=== PATIENT | female | born 1940 | race Caucasian/White ===

== ENCOUNTER 2020-11-01 06:10 | Emergency (ER) | payer MEDICARE, BC ==
--- NOTE | 2020-11-01 06:39 | EDM.PDOC ---
ED HPI GENERAL MEDICAL PROBLEM - General Chief Complaint: General Stated Complaint: R great toe pain Time Seen by Provider: 11/01/20 06:39 Source of Information: Reports: Patient - History of Present Illness INITIAL COMMENTS - FREE TEXT/NARRATIVE: Albertina, 80-year-old female, presents with inflammation and drainage from her right great toe. 10 days ago she had a toenail removal after being treated with cephalexin as it was significantly infected. Infection all cleared nicely and was deemed infection free at the time the nail was removed on the . The past 2 days she is noted mild inflammation redness with drainage obtained yesterday after she had soaked it. Pressure and redness has continued and she presents to us for evaluation and antibiotic treatment. She has no other complaints Onset: Gradual Duration: Day(s): Location: Reports: Lower Extremity, Right Quality: Reports: Pressure, Throbbing Severity: Moderate Improves with: Reports: None Worsens with: Reports: Movement Associated Symptoms: Reports: No Other Symptoms Right Toe-Hailux Pain Score (Numeric/FACES): 7 - Related Data Allergies Allergy/AdvReac Type Severity Reaction Status Date / Time clarithromycin [From Biaxin] Allergy Cannot Verified 11/01/20 06:54 Remember Sulfa (Sulfonamide Allergy Cannot Verified 11/01/20 06:54 Antibiotics) Remember Home Meds: Home Meds Arformoterol [Brovana] 15 mcg INH Q12HR 11/01/20 [History] Aspirin [Aspirin EC] 81 mg PO DAILY 11/01/20 [History] Betamethasone Dipropionate [Diprolene 0.05% Lotion] 30 ml TP BID 11/01/20 [History] Budesonide [Pulmicort] 0.5 mg IH BID 11/01/20 [History] Bumetanide 0.5 mg PO DAILY 11/01/20 [History] Calcium Carbonate 500 mg PO DAILY 11/01/20 [History] Levothyroxine [Synthroid] 100 mcg PO ACBREAKFAST 11/01/20 [History] Metoprolol Tartrate 25 mg PO BID 11/01/20 [History] Multivitamin 1 tab PO DAILY 11/01/20 [History] Simvastatin [Zocor] 40 mg PO DAILY 11/01/20 [History] cephALEXin [Cephalexin] 500 mg PO TID 7 Days #21 tablet 11/01/20 [Rx] Past Medical History HEENT History: Reports: Cataract, Impaired Vision, Retinal Detachment, Other (See Below) (hypertropia and myopia) Cardiovascular History: Reports: High Cholesterol, Hypertension, Other (See Below) (ASCD tricuspid insufficiency) Respiratory History: Reports: Asthma, Sleep Apnea, Other (See Below) (pulmonary nodules) Gastrointestinal History: Reports: None Genitourinary History: Reports: Other (See Below) (overactive bladder Nocturia) 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: Musculoskeletal History: Reports: None Neurological History: Reports: None Psychiatric History: Reports: None Endocrine/Metabolic History: Reports: Hypothyroidism Hematologic History: Reports: None Dermatologic History: Reports: Angiodema, Cellulitis, Eczema, Other (See Below) - Past Surgical History HEENT Surgical History: Reports: Cataract Surgery, Detached Retina, Visual (vitrectomy and YAG) Respiratory Surgical History: Reports: Lung Biopsies, Lung Resection GI Surgical History: Reports: None Oncologic Surgical History: Reports: Biopsy of Breast, Mastectomy Other Surgical History Comment: toe nail removal 10 days ago 23 October 2020 - Past Imaging History Past Imaging History: Reports: Bone Scan, CAT Scan, Mammogram, Ultrasound, Xray Social & Family History - Family History Family Medical History: No Pertinent Family History ED ROS GENERAL - Review of Systems Review Of Systems: Comprehensive ROS is negative, except as noted in HPI. ED EXAM, GENERAL - Physical Exam Exam: See Below Free Text/Narrative:: Alert, oriented in no acute distress. No respiratory distress is noted with no audible wheezes nor distress. Regular heart rate with radial pulse present. Focused examination to the right great toe showing exudate blood-tinged to the base of where the nailbed had been after nail removal. There is mild erythema over the dorsum of the toe. Tenderness to touch. There is no tenderness on the plantar aspect no redness no crepitus noted during flexion extension of the digit. Course - Vital Signs Last Recorded V/S: Last Vital Signs Temp 97.0 F 11/01/20 06:23 Pulse 57 L 11/01/20 06:23 Resp 20 11/01/20 06:23 BP 141/63 H 11/01/20 06:23 Pulse Ox 96 11/01/20 06:23 - Orders/Labs/Meds Meds: Medications Discontinued Medications Generic Name Dose Route Start Last Admin Trade Name Freq PRN Reason Stop Dose Admin Cephalexin 500 mg 11/01/20 06:57 11/01/20 07:01 Cephalexin 250 Mg Cap PO 11/01/20 06:58 500 mg ONETIME ONE Administration Departure - Departure Time of Disposition: 07:02 Disposition: Home, Self-Care 01 Condition: Good Clinical Impression: Infected abrasion of great toe of right foot - Discharge Information *PRESCRIPTION DRUG MONITORING PROGRAM REVIEWED*: Not Applicable *COPY OF PRESCRIPTION DRUG MONITORING REPORT IN PATIENT MICA: Not Applicable Prescriptions: cephALEXin [Cephalexin] 500 mg PO TID 7 Days #21 tablet Referrals: Katelin Stubbs MD [Primary Care Provider] - Forms: ED Department Discharge Additional Instructions: We have obtained a culture from the nailbed which will take 3 to 5 days to result. You will take cephalexin 500 mg 3 times a day for the next 7 days. Continue all your other medications as directed. You can maintain any activity that is comfortable, but if swelling or drainage becomes worse consider elevating and reducing your activity. Keep this clean and dry as possible. Follow-up with your clinic next week if not showing improvement by Tuesday which would be 48 hours of antibiotic. Sepsis Event Note (ED) - Focused Exam Vital Signs: Vital Signs Temp Pulse Resp BP Pulse Ox 11/01/20 06:23 97.0 F 57 L 20 141/63 H 96 - Problem List & Annotations (1) Infected abrasion of great toe of right foot SNOMED Code(s): 37768279726565602 Code(s): S90.411A - ABRASION, RIGHT GREAT TOE, INITIAL ENCOUNTER; L08.9 - LOCAL INFECTION OF THE SKIN AND SUBCUTANEOUS TISSUE, UNSP Status: Acute Qualifiers: Encounter type: initial encounter Qualified Code(s): S90.411A - Abrasion, right great toe, initial encounter; L08.9 - Local infection of the skin and subcutaneous tissue, unspecified - Problem List Review Problem List Initiated/Reviewed/Updated: Yes - Assessment/Plan Plan: We have obtained a culture from the nailbed which will take 3 to 5 days to result. You will take cephalexin 500 mg 3 times a day for the next 7 days. Continue all your other medications as directed. You can maintain any activity that is comfortable, but if swelling or drainage becomes worse consider elevating and reducing your activity. Keep this clean and dry as possible. Follow-up with your clinic next week if not showing improvement by Tuesday which would be 48 hours of antibiotic.
[2020-11-01] MEDS ORDERED: Cephalexin 250 MG Cap PO ONE (06:57)
== END 2020-11-01 07:15 | disposition home or self-care (01) ==
LOC: KA.ED 06:10
DX: S90.411A Abrasion, right great toe, initial encounter (principal); L08.9 Local infection of the skin and subcutaneous tissue, unspecified; E78.00 Pure hypercholesterolemia, unspecified; I10 Essential (primary) hypertension; E03.9 Hypothyroidism, unspecified; Z79.899 Other long term (current) drug therapy; Z79.82 Long term (current) use of aspirin; Z88.1 Allergy status to other antibiotic agents; Z88.2 Allergy status to sulfonamides; X58.XXXA Exposure to other specified factors, initial encounter; Y92.009 Unspecified place in unspecified non-institutional (private) residence as the place of occurrence of the external cause
CPT/HCPCS: 87070; 87186; 87205; 99283; A9270-GY

== ENCOUNTER 2021-10-17 10:50 | Emergency (ER) | payer MEDICARE, BC ==
[2021-10-17 11:57] LABS: ANION GAP 12.3 mmol/L (5-15)
[2021-10-17] MEDS: Acetaminophen 500 MG Tab PO ONE (12:11)
[2021-10-17] MEDS: Benzonatate 100 MG Cap PO ONE ×2 (12:16→13:40)
[2021-10-17] MEDS: Ondansetron 4 MG Tab.DIS PO ONE (12:29)
[2021-10-17] MEDS ORDERED: diphenhydrAMINE 50 MG/ML SDV IVPUSH PRN (12:46)
[2021-10-17] MEDS ORDERED: methylPREDNISolone Sodium Succinate 125 MG/2 ML SDV IVPUSH PRN (12:46)
[2021-10-17] MEDS ORDERED: EPINEPHrine 1:10,000 1 MG/10 ML Syringe IM PRN (12:46)
[2021-10-17] MEDS ORDERED: Famotidine 20 MG/2 ML SDV IVPUSH PRN (12:46)
[2021-10-17] MEDS ORDERED: Sodium Chloride 0.9% 10 ML Syringe FLUSH SCH (13:00)
== END 2021-10-17 14:25 | disposition home or self-care (01) ==
LOC: KA.ED 10:50
DX: U07.1 COVID-19 (principal); E78.00 Pure hypercholesterolemia, unspecified; E03.9 Hypothyroidism, unspecified; I10 Essential (primary) hypertension; Z88.1 Allergy status to other antibiotic agents; Z88.2 Allergy status to sulfonamides; Z79.899 Other long term (current) drug therapy; Z79.82 Long term (current) use of aspirin
CPT/HCPCS: 36415; 71045; 80053; 85025; 99284; A9270; M0222; Q0222; U0002

== ENCOUNTER 2022-02-27 07:00 | Emergency (ER) | payer MEDICARE, BC ==
[2022-02-27] MEDS ORDERED: Sodium Chloride 0.9% 10 ML Syringe FLUSH PRN (07:08)
[2022-02-27 08:19] LABS: RESPIRATORY SYNCYTIAL VIR NAA NEGATIVE (NEGATIVE)
[2022-02-27 08:27] LABS: CORONAVIRUS COVID-19 NAA NEGATIVE (NEGATIVE)
== END 2022-02-27 09:00 | disposition home or self-care (01) ==
LOC: KA.ED 07:00
DX: J10.1 Influenza due to other identified influenza virus with other respiratory manifestations (principal); J44.9 Chronic obstructive pulmonary disease, unspecified; E78.00 Pure hypercholesterolemia, unspecified; I10 Essential (primary) hypertension; J45.909 Unspecified asthma, uncomplicated; E03.9 Hypothyroidism, unspecified; Z88.1 Allergy status to other antibiotic agents; Z88.2 Allergy status to sulfonamides; Z79.82 Long term (current) use of aspirin; Z79.899 Other long term (current) drug therapy; Z20.822 Contact with and (suspected) exposure to COVID-19
CPT/HCPCS: 0241U; 71046; 80053; 83605; 85025; 86140; 87040; 99284; J3490

== ENCOUNTER 2022-12-20 11:59 | Emergency (ER) | payer MEDICARE, BC ==
[2022-12-20 12:26] LABS: BASOPHILS ABSOLUTE AUTO 0.05 10^3/uL (0.00-0.10); BASOPHILS PERCENT AUTO 0.6 % (0.0-1.0); EOSINOPHILS ABSOLUTE AUTO 0.23 10^3/uL (0.10-0.30); EOSINOPHILS PERCENT AUTO 2.8 % (1.0-3.0); HEMATOCRIT 38.9 % (37.0-47.0); HEMOGLOBIN 12.7 g/dL (12.0-16.0); IMMATURE GRAN ABSOLUTE AUTO 0.02 10^3/uL (0.00-0.50); IMMATURE GRAN PERCENT AUTO 0.2 % (0.0-5.0); LYMPHOCYTES ABSOLUTE AUTO 1.84 10^3/uL (1.00-4.00); LYMPHOCYTES PERCENT AUTO 22.6 % (20.0-40.0); MEAN CORPUSCULAR HEMOGLOBIN 29.7 pg (27.0-31.0); MEAN CORPUSCULAR HGB CONC 32.6 g/dL (32.0-36.0); MEAN CORPUSCULAR VOLUME 90.9 fL (82.0-92.0); MEAN PLATELET VOLUME 9.5 fL (7.4-10.4); MONOCYTES ABSOLUTE AUTO 0.92 10^3/uL (0.10-0.80); MONOCYTES PERCENT AUTO 11.3 % (2.0-8.0); NEUTROPHILS ABSOLUTE AUTO 5.07 10^3/uL (2.50-7.00); NEUTROPHILS PERCENT AUTO 62.5 % (50.0-70.0); PLATELET COUNT,PLT 317 10^3/uL (150-400); RED BLOOD CELL COUNT 4.28 10^6/uL (3.80-5.50); WHITE BLOOD CELL COUNT,WBC 8.13 10^3/uL (5.00-10.00)
[2022-12-20 12:41] LABS: ALBUMIN 3.05 g/dL (3.40-5.00); ANION GAP 9.7 mmol/L (5-15); BILIRUBIN TOTAL 0.2 mg/dL (0.2-1.0); CALCIUM 8.9 mg/dL (8.7-10.3); CARBON DIOXIDE,CO2 29.8 mmol/L (21.0-32.0); CREATININE 0.8 mg/dL (0.51-1.17); EST CRCL DRUG DOSING (CG) 48.43 mL/min; POTASSIUM,K 3.5 mmol/L (3.5-5.1); PROTEIN TOTAL,TP 7.7 g/dL (6.4-8.2)
[2022-12-20 13:21] LABS: INFLUENZA A NAA NEGATIVE (NEGATIVE); INFLUENZA B NAA NEGATIVE (NEGATIVE); RESPIRATORY SYNCYTIAL VIR NAA NEGATIVE (NEGATIVE)
[2022-12-20 13:22] LABS: CORONAVIRUS COVID-19 NAA NEGATIVE (NEGATIVE)
== END 2022-12-20 14:00 | disposition home or self-care (01) ==
LOC: KA.ED 11:59
DX: R05.1 Acute cough (principal); R93.89 Abnormal findings on diagnostic imaging of other specified body structures; I10 Essential (primary) hypertension; E78.00 Pure hypercholesterolemia, unspecified; K21.9 Gastro-esophageal reflux disease without esophagitis; E03.9 Hypothyroidism, unspecified; J45.909 Unspecified asthma, uncomplicated; Z20.822 Contact with and (suspected) exposure to COVID-19; Z79.82 Long term (current) use of aspirin; Z79.899 Other long term (current) drug therapy; Z88.2 Allergy status to sulfonamides; Z88.1 Allergy status to other antibiotic agents
CPT/HCPCS: 0241U; 36415; 71045; 80053; 85025; 99283